=== PATIENT | male | born 2005 | race Caucasian/White ===

== ENCOUNTER 2024-09-28 09:35 | Emergency (ER) | payer OTHER ==
[~2024-09-28] VITALS: Ht 172.7 cm; Wt 76.0 kg
[2024-09-28 09:41] VITALS: O2SAT 99
[2024-09-28] MEDS: OXYCODONE HCL/ACETAMINOPHEN 5/325MG TABLET PO STA (09:52)
[2024-09-28 11:17] LABS: CLARITY URINE CLEAR (CLEAR); COLOR URINE YELLOW (YELLOW); GLUCOSE URINE NEGATIVE (NEGATIVE); KETONES URINE 1+ (NEGATIVE); LEUKOCYTE ESTERASE URINE NEGATIVE (NEGATIVE); NITRITE URINE NEGATIVE (NEGATIVE); OCCULT BLOOD URINE NEGATIVE (NEGATIVE); PROTEIN URINE NEGATIVE (NEGATIVE); SPECIFIC GRAVITY URINE 1.022 (1.005-1.030)
[2024-09-28] MEDS ORDERED: CIPR500T5 MT (12:29)
[2024-09-28] MEDS ORDERED: NAPR-1176 MT (12:29)
[2024-09-28] MEDS ORDERED: OXYC-100 MT (12:29)
[2024-09-28 14:07] VITALS: BP 135/85; PULSE 99; RESP 20; TEMP 36.5; O2SAT 97
== END 2024-09-28 14:41 | disposition home or self-care (01) ==
LOC: ER 09:35
DX: N44.00 Torsion of testis, unspecified (principal); Z79.1 Long term (current) use of non-steroidal anti-inflammatories (NSAID); Z79.899 Other long term (current) drug therapy
CPT/HCPCS: 87491; 87591; 81003; 93976; 76870; 99284; Z7610 ×5; A4606